=== PATIENT | male | born 1990 | race Two or more races ===

== ENCOUNTER 2018-07-28 09:52 | Emergency (ER) | payer OTHER, SELFPAY ==
[~2018-07-28] VITALS: Ht 162.6 cm; Wt 75.5 kg
[2018-07-28 09:54] VITALS: BP 114/64
[2018-07-28] MEDS ORDERED: IBUPROFEN 200 MG TABLET ONE (10:20)
[2018-07-28] MEDS ORDERED: IBUPROFEN 200 MG TABLET PO ONE (10:30)
== END 2018-07-28 11:18 | disposition home or self-care (01) ==
LOC: ED 11:16
DX: S62.316A Displaced fracture of base of fifth metacarpal bone, right hand, initial encounter for closed fracture (principal); F17.200 Nicotine dependence, unspecified, uncomplicated; W51.XXXA Accidental striking against or bumped into by another person, initial encounter; Y93.72 Activity, wrestling; Y92.009 Unspecified place in unspecified non-institutional (private) residence as the place of occurrence of the external cause; Y99.8 Other external cause status
CPT/HCPCS: 29125; 99283

== ENCOUNTER 2018-10-04 04:49 | Emergency (ER) | payer BC, OTHER ==
[~2018-10-04] VITALS: Ht 165.1 cm; Wt 79.5 kg
[2018-10-04 04:51] VITALS: BP 131/84
--- NOTE | 2018-10-04 05:24 | NUR ---
PT AMBULATED TO XRAY WITH STEADY GAIT
[2018-10-04 06:21] LABS: MICROSCOPIC NOT IND
[2018-10-04 06:31] LABS: CULTURE INDICATED? NO
== END 2018-10-04 06:56 | disposition home or self-care (01) ==
LOC: ED 05:44
DX: S20.211A Contusion of right front wall of thorax, initial encounter (principal); W01.0XXA Fall on same level from slipping, tripping and stumbling without subsequent striking against object, initial encounter; Y93.89 Activity, other specified; Y92.410 Unspecified street and highway as the place of occurrence of the external cause; Y99.8 Other external cause status
CPT/HCPCS: 71046; 81003; 99284

== ENCOUNTER 2019-07-14 03:53 | Emergency (ER) | payer BC, OTHER ==
[~2019-07-14] VITALS: Ht 162.6 cm; Wt 72.0 kg
[2019-07-14 03:56] VITALS: BP 135/77
== END 2019-07-14 05:43 | disposition home or self-care (01) ==
LOC: ED 05:37
DX: F51.01 Primary insomnia (principal)
CPT/HCPCS: 99283